=== PATIENT | female | born 1995 | race Hispanic/Latino ===

== ENCOUNTER 2019-10-12 15:17 | Outpatient (CLI) | payer OTHER, MEDICAID ==
[2019-10-12] MEDS ORDERED: LACTATED RINGERS 500 ML IV ONE (16:14)
[2019-10-12] MEDS ORDERED: LACTATED RINGERS 1,000 ML ONE (16:19)
[2019-10-12 16:31] VITALS: BP 109/71
[2019-10-12 17:05] LABS: Bacteria,Urine 2+ /HPF (Negative); Bilirubin,Urine NEG (Negative); Blood,Urine NEG (Negative); Color,Urine Straw (Yellow); Protein,Urine <15 mg/dL mg/dL (Negative); Urobilinogen,Urine < 2.0 mg/dL (<2.0)
[2019-10-12 17:21] LABS: Basophils % (Auto) 0.1 % (0.0-1.8); Eosinophils % (Auto) 0.3 % (0.0-4.3); Hematocrit 32.9 % (30.3-42.9); Hemoglobin 11.4 gm/dl (10.1-14.3); Lymphocytes # (Auto) 1.3 K/mm3 (1.2-5.4); Lymphocytes % (Auto) 12.2 % (13.4-35.0); Mean Corpuscular HGB Conc 35 % (30-34); Mean Corpuscular Volume 92 fl (79-97); Monocytes # (Auto) 0.7 K/mm3 (0.0-0.8); Monocytes % (Auto) 6.9 % (0.0-7.3); Platelet Count 221 K/mm3 (140-440); Red Cell Distribution Width 12.8 % (13.2-15.2)
[2019-10-12] MEDS ORDERED: TERBUTALINE 1 MG/1 ML INJ SUB-Q ONE (17:33)
[2019-10-12] MEDS: LACTATED RINGERS 1,000 ML IV SCH ×2 (17:54→17:55)
== END 2019-10-12 19:22 | disposition home or self-care (01) ==
LOC: TRG 15:17 → APU 15:17 → TRG 19:22
PROVIDERS: ATTEND Obstetrics & Gynecology
DX: O26.893 Other specified pregnancy related conditions, third trimester (principal); M54.9 Dorsalgia, unspecified; M25.551 Pain in right hip; R25.2 Cramp and spasm; O47.03 False labor before 37 completed weeks of gestation, third trimester; Z3A.33 33 weeks gestation of pregnancy
CPT/HCPCS: 36415; 59025; 81001; 85025; 86592; 86850; 86900; 86901; 96360; 96361; 96372; J3105; J7120

== ENCOUNTER 2019-11-25 18:16 | Outpatient (CLI) | payer OTHER, MEDICAID ==
[2019-11-25 18:43] VITALS: BP 116/71
[2019-11-25] MEDS ORDERED: ACETAMINOPHEN 500 MG TAB PO ONE (19:10)
== END 2019-11-25 19:41 | disposition home or self-care (01) ==
LOC: TRG 18:16 → APU 18:17 → TRG 19:41
PROVIDERS: ATTEND Obstetrics & Gynecology
DX: O62.9 Abnormality of forces of labor, unspecified (principal); Z3A.39 39 weeks gestation of pregnancy
CPT/HCPCS: Q0177

== ENCOUNTER 2019-11-26 08:30 | Inpatient (IN) | payer OTHER, MEDICAID ==
[2019-11-26] MEDS ORDERED: miSOPROStol 200 MCG TAB PR PRN (10:00)
[2019-11-26] MEDS ORDERED: LIDOCAINE (2%) 20 MG/1 ML VIAL 20 ML MDV INFILTRATI SCH (10:00)
[2019-11-26] MEDS ORDERED: TERBUTALINE 1 MG/1 ML INJ SUB-Q PRN (10:00)
[2019-11-26] MEDS ORDERED: ePHEDrine SULFATE 50 MG/1 ML INJ IV PRN ×2 (10:00→10:23)
[2019-11-26] MEDS ORDERED: fentaNYL 100 MCG/2 ML INJ IV PRN (10:00)
[2019-11-26] MEDS ORDERED: OXYTOCIN 20 UNIT/1000ML DRIP 20 UNITS/1,000 ML BAG IV SCH ×3 (10:00→20:45)
[2019-11-26] MEDS ORDERED: OXYTOCIN 10 UNIT/1 ML INJ IM PRN (10:00)
[2019-11-26] MEDS ORDERED: ACETAMINOPHEN 325 MG TAB PO PRN ×2 (10:00→20:45)
[2019-11-26] MEDS ORDERED: OXYTOCIN DRIP 30 UNITS/500 ML BAG IV SCH ×2 (10:00→12:00)
[2019-11-26] MEDS ORDERED: CARBOPROST TROMETHAMINE 250 MCG/1 ML INJ IM PRN (10:00)
[2019-11-26] MEDS ORDERED: ONDANSETRON 4 MG/2 ML INJ IV PRN (10:00)
[2019-11-26] MEDS: LACTATED RINGERS 1,000 ML IV SCH ×2 (10:00→14:58)
[2019-11-26] MEDS ORDERED: MINERAL OIL 30 ML ORAL LIQD PO PRN (10:00)
[2019-11-26] MEDS ORDERED: METHYLERGONOVINE MALEATE 0.2 MG/ML VIAL IM PRN (10:00)
[2019-11-26] MEDS ORDERED: NALOXONE 2 MG/2 ML INJ IV PRN (10:23)
[2019-11-26 10:39] LABS: Hemoglobin 11.5 gm/dl (10.1-14.3); Mean Corpuscular HGB Conc 34 % (30-34); Mean Corpuscular Volume 88 fl (79-97); Platelet Count 218 K/mm3 (140-440); Red Blood Count 3.85 M/mm3 (3.65-5.03); Red Cell Distribution Width 13.4 % (13.2-15.2)
[2019-11-26] MEDS ORDERED: fentaNYL-BUPIV 2 MCG/ML-0.125% 200 MCG/100 ML BAG EPIDURAL SCH (11:00)
--- NOTE | 2019-11-26 11:44 | History and Physical Report ---
History of Present Illness Date of examination: 11/26/19 (pt returned to Triage in active labor SVE 6cm) Chief complaint: Contraction all night History of present illness: EDC Confirmation: 11/27/2019 Gestational Age: 6 4/7 weeks Past History : 2 Term Births: 0 Premature Births: 0 Living Children: 0 Para: 0 Mult. Births: 0 Prev : 0 Prev. attempt? 0 Aborta: 1 Elect. Ab: 0 Spont. Ab: 1 Ectopics: 0 # 1 Delivery date: 03/12/2018 Weeks Gestation: 10 Delivery type: SAB Comments: Medication no D&C Risk Factors: Smoked Tobacco Use: Never smoker Smokeless Tobacco Use: Never Passive smoke exposure: no Drug use: no HIV high-risk behavior: no Caffeine use: 0 drinks per day Alcohol use: no Exercise: no Seatbelt use: 100 % Past Medical History: Reviewed history from 03/04/2018 and no changes required: SVT hypoglycemia Past Surgical History: Reviewed history from 03/04/2018 and no changes required: positive, Cadiac ablation (1990) Cholecystectomy (2008) Loop recorder (2013) Family History Summary: Reviewed history and no changes required: 04/07/2019 Other family member - Has Family History of Coronary Heart Disease - Entered On: 03/04/2018 Other family member - Has Family History of CVA or Stroke - Entered On: 03/04/2018 Other family member - Has Family History of Diabetes - Entered On: 03/04/2018 Other family member - Has No Family History of Breast Cancer - Entered On: 03/04/2018 Other family member - Has No Family History of Colon Cancer - Entered On: 03/04/2018 Other family member - Has No Family History of Ovarvian Cancer - Entered On: 03/04/2018 Social History: Reviewed history from 03/04/2018 and no changes required: Marital Status: Children: 0 Occupation: [employer] Past Medical History Anesthesia Complications: negative Anemia: negative Autoimmune Disorder: negative Bleeding Disorder: negative Blood Transfusions: negative Breast Disease: negative Diabetes: negative Heart Disease: positive Hypertension: negative Hepatitis/Liver Disease: negative Kidney Disease/UTI: negative Neurologic/Epilepsy/Migraines: negative Phlebitis/Varicosities: negative Psychiatric: negative Pulmonary Disease/Asthma: negative Thyroid Disease: negative Hospitalizations: positive Surgery (Non-filter helper): positive, Cadiac ablation (1990) Cholecystectomy (2008) Loop recorder (2013) Abnormal PAP: positive Uterine Anomaly: negative Social Hx: Marital Status: Children: 0 Occupation: Student [employer] early Infection History Hx of STD: none HIV Risk Eval: no Hepatitis B Risk Eval: low risk Personal hx. of genital herpes: no Genetic History Congenital Heart Defect: Mom: no Dad: unknown Milena Disease: Mom: no Dad: unknown Thalassemia Mom: no Dad: unknown Neural Tube Defect Mom: no Dad: unknown Down's Syndrome Mom: no Dad: unknown Karl-Sachs Mom: no Dad: unknown Sickle Cell Disease/Trait Mom: no Dad: unknown Hemophilia Mom: no Dad: unknown Muscular Dystrophy Mom: no Dad: unknown Cystic Fibrosis Mom: yes Dad: unknown [place] Chorea Mom: no Dad: unknown Mental Retardation Mom: no Dad: unknown Fragile X Mom: no Dad: unknown Other Genetic/Chromosomal Disorder Mom: no Dad: unknown Child w/other defect Mom: no Dad: unknown Enviromental Exposures Xray Exposure: no Medication, drug, or alcohol use since LMP: no Chemical/Other Exposure: no Exposure to Cat Liter: no Current Allergies: No known allergies Past History - Obstetrical History Expected Date of Delivery: 11/27/19 Actual Gestation: 39 Week(s) 6 Day(s) : 2 Para: 0 Hx # Term Pregnancies: 0 Number of Pregnancies: 0 Spontaneous Abortions: 1 Induced : 0 Number of Living Children: 0 Medications and Allergies Allergies Allergy/AdvReac Type Severity Reaction Status Date / Time No Known Allergies Allergy Verified 10/12/19 16:28 Active Meds: Active Medications Acetaminophen (Tylenol) 650 mg PO Q4H PRN PRN Reason: Pain, Mild (1-3) Carboprost Tromethamine (Hemabate) 250 mcg IM ONCE PRN PRN Reason: Uterine Bleeding Ephedrine Sulfate (Ephedrine Sulfate) 10 mg IV Q2M PRN PRN Reason: Hypotension Fentanyl (Sublimaze) 100 mcg IV Q2H PRN PRN Reason: Pain,Severe (7-10) LABOR PAIN Last Admin: 11/26/19 10:00 Dose: 100 mcg Documented by: Oxytocin/Sodium Chloride (Pitocin/Ns 30 Unit/500ml) 30 units in 500 mls @ 2 mls/hr IV TITR DARSHAN; Protocol Lactated Ringer's (Lactated Ringers) 1,000 mls @ 125 mls/hr IV DIRECT DARSHAN Last Admin: 11/26/19 10:00 Dose: 125 mls/hr Documented by: Oxytocin/Sodium Chloride (Pitocin/Ns 20 Unit/1000ml Drip) 20 units in 1,000 mls @ 125 mls/hr IV DIRECT DARSHAN Fentanyl/Bupivacaine/Sodium Chlor (Fentanyl-Bupiv 2 Mcg/Ml-0.125%) 200 mcg in 100 mls @ 12 mls/hr EPIDURAL TITR DARSHAN; Protocol Lidocaine (Xylocaine 2%) 20 ml INFILTRATI ONCE DARSHAN Stop: 11/27/19 09:59 Methylergonovine Maleate (Methergine) 0.2 mg IM ONCE PRN PRN Reason: Uterine Bleeding Mineral Oil (Mineral Oil) 30 ml PO QHS PRN PRN Reason: Constipation Misoprostol (Cytotec) 800 mcg WI ONCE PRN PRN Reason: Uterine Bleeding Naloxone HCl (Naloxone) 0.2 mg IV Q5M PRN PRN Reason: Respiratory sedation Ondansetron HCl (Zofran) 4 mg IV Q8H PRN PRN Reason: Nausea And Vomiting Oxytocin (Pitocin) 10 unit IM ONCE PRN PRN Reason: Uterine Bleeding Terbutaline Sulfate (Brethine) 0.25 mg SUB-Q ONCE PRN PRN Reason: Hyperstimulation/Hypertonicity Review of Systems All systems: negative - Vital Signs Vital signs: Vital Signs Temp Pulse Resp BP 98.6 F 90 14 123/80 11/26/19 09:35 11/26/19 09:35 11/26/19 09:35 11/26/19 09:35 Temp Pulse Resp BP Pulse Ox 98.6 F 66 14 113/62 100 11/26/19 09:35 11/26/19 11:38 11/26/19 09:35 11/26/19 11:37 11/26/19 11:38 - Physical Exam Breasts: Positive: deferred Cardiovascular: Regular rate Lungs: Positive: Normal air movement Abdomen: Positive: normal appearance, soft, normal bowel sounds Genitourinary (Female): Positive: normal external genitalia Vulva: both: normal Vagina: Positive: normal moisture Uterus: Positive: normal size Extremities: Positive: normal Deep Tendon Reflex Grade: Normal +2 - Obstetrical FHR: category 1 Uterine Contraction Monitor Mode: External Cervical Dilatation: 6 Cervical Effacement Percentage: 70 station: -1 Uterine Contraction Frequency (min): 2-3 Uterine Contraction Duration: 60-70 sec Uterine Contraction Pattern: Regular Uterine Tone Measurement Phase: Resting Uterine Contraction Intensity: Moderate Results Result Diagrams: 11/26/19 09:32 All other labs normal. GBS NEGATIVE HBsAg Screen Negative Negative *1 RPR Non Reactive Non Reactive *2 Rubella Antibodies, IgG 20.00 index Immune >0.99 *3 Non-immune <0.90 Equivocal 0.90 - 0.99 Immune >0.99 ABO Grouping A *4 Rh Factor Positive *5 Please note: Prior records for this patient's ABO / Rh type are not available for additional verification. Antibody Screen Negative Negative *6 WBC 8.7 x10E3/uL 3.4-10.8 *7 RBC 3.94 x10E6/uL 3.77-5.28 *8 Hemoglobin 12.1 g/dL 11.1-15.9 *9 Hematocrit 36.7 % 34.0-46.6 *10 MCV 93 fL 79-97 *11 MCH 30.7 pg 26.6-33.0 *12 MCHC 33.0 g/dL 31.5-35.7 *13 RDW 13.2 % 11.7-15.4 *14 Platelets 233 x10E3/uL 150-450 *15 Neutrophils 70 % Not Estab. *16 Lymphs 21 % Not Estab. *17 Monocytes 8 % Not Estab. *18 Eos 1 % Not Estab. *19 Basos 0 % Not Estab. *20 ! Immature Cells <No Reported Value> *21 Neutrophils (Absolute) 6.0 x10E3/uL 1.4-7.0 *22 Lymphs (Absolute) 1.8 x10E3/uL 0.7-3.1 *23 Monocytes(Absolute) 0.7 x10E3/uL 0.1-0.9 *24 Eos (Absolute) 0.1 x10E3/uL 0.0-0.4 *25 Baso (Absolute) 0.0 x10E3/uL 0.0-0.2 *26 ! Immature Granulocytes 0 % Not Estab. *27 ! Immature Grans (Abs) 0.0 x10E3/uL 0.0-0.1 *28 ! NRBC <No Reported Value> *29 Hematology Comments: <No Reported Value> *30 Tests: (2) HB Solu + Rflx Frac (144169) Hemoglobin (Hgb) Solubility Negative Negative *31 Tests: (3) HIV Ag/Ab with Reflex (070005) HIV Screen 4th Generation wRfx Non Reactive Non Reactive *32 Tests: (4) HCV Ab w/Rflx to Verification (347505) ! HCV Ab <0.1 s/co ratio 0.0-0.9 *33 Tests: (5) Comment: ([id number]) ! Comment: SPRCS *34 Non reactive HCV antibody screen is consistent with no HCV infection, unless recent infection is suspected or other evidence exists to indicate HCV infection. Assessment and Plan Patient is a 24 y/o 39.6 weeks gestation who present in active labor, GBS neg all orders in EMR anticipate delivery. JULITO Palacios
--- NOTE | 2019-11-26 11:52 | Anesthesia Consultation ---
Anesthesia Consult and Med Hx Date of service: 11/26/19 - Airway Anesthetic Teeth Evaluation: Good ROM Head & Neck: Adequate Mental/Hyoid Distance: Adequate Mallampati Class: Class II Intubation Access Assessment: Probably Good - Pulmonary Exam CTA: Yes - Cardiac Exam Cardiac Exam: RRR - Pre-Operative Health Status ASA Pre-Surgery Classification: ASA2 Proposed Anesthetic Plan: Epidural - Pulmonary Hx Asthma: No - Cardiovascular System Hx Hypertension: No Hx Cardia Arrhythmia: Yes (SVT s/p ablation) - Central Nervous System Hx Seizures: No Hx Psychiatric Problems: No - Endocrine Hx Renal Disease: No Hx Hypothyroidism: No Hx Hyperthyroidism: No - Hematic Hx Anemia: No Hx Sickle Cell Disease: No - Other Systems Hx Alcohol Use: No
--- NOTE | 2019-11-26 11:53 | Progress Note ---
Labor Epidural - Labor Epidural Start Time: 11:21 Stop Time: 11:29 Performed by:: MEGAN FLORES Procedure: Patient is requesting epidural for labor pain. H&P, and labs reviewed. Procedure explained, questions answered, consent obtained. Patient in sitting position with blood pressure cuff and pulse ox on and working. Timeout performed immediately before start of procedure. Sterile betadine prep/drape. 3 mL 1% lidocaine skin wheal at L[3]-L[4]. 18-gauge Touhy epidural needle advanced to [id number] with saline at 5 cm. Epidural dexmedetomidine [30] mcg administered. Epidural catheter advanced to 10 cm, negative aspiration for blood and csf, negative test dose 3 ml 1.5% lidocaine with epinephrine. Sterile steri-strips and tegaderm applied, followed by tape reinforcement. Patient tolerated procedure well. Day SRNA
--- NOTE | 2019-11-26 12:51 | Progress Note ---
Assessment and Plan Patient Resting comfortably after epidural, SVE 7/80/-1 soft midline vtx. Orders for Pitocin 4x4 every 30 mins anticipate delivery. FHT's 135-140's Cat 1 Subjective - Subjective Date of service: 11/26/19 (Patient complaints of pressure) Principal diagnosis: IUP at 39.6 weeks gestation with epidural Interval history: EDC Confirmation: 11/27/2019 Gestational Age: 6 4/7 weeks Past History : 2 Term Births: 0 Premature Births: 0 Living Children: 0 Para: 0 Mult. Births: 0 Prev : 0 Prev. attempt? 0 Aborta: 1 Elect. Ab: 0 Spont. Ab: 1 Ectopics: 0 # 1 Delivery date: 03/12/2018 Weeks Gestation: 10 Delivery type: SAB Comments: Medication no D&C Risk Factors: Smoked Tobacco Use: Never smoker Smokeless Tobacco Use: Never Passive smoke exposure: no Drug use: no HIV high-risk behavior: no Caffeine use: 0 drinks per day Alcohol use: no Exercise: no Seatbelt use: 100 % Past Medical History: Reviewed history from 03/04/2018 and no changes required: SVT hypoglycemia Past Surgical History: Reviewed history from 03/04/2018 and no changes required: positive, Cadiac ablation (1990) Cholecystectomy (2008) Loop recorder (2013) Family History Summary: Reviewed history and no changes required: 04/07/2019 Other family member - Has Family History of Coronary Heart Disease - Entered On: 03/04/2018 Other family member - Has Family History of CVA or Stroke - Entered On: 03/04/2018 Other family member - Has Family History of Diabetes - Entered On: 03/04/2018 Other family member - Has No Family History of Breast Cancer - Entered On: 03/04/2018 Other family member - Has No Family History of Colon Cancer - Entered On: 03/04/2018 Other family member - Has No Family History of Ovarvian Cancer - Entered On: 03/04/2018 Social History: Reviewed history from 03/04/2018 and no changes required: Marital Status: Children: 0 Occupation: [employer] early Past Medical History Anesthesia Complications: negative Anemia: negative Autoimmune Disorder: negative Bleeding Disorder: negative Blood Transfusions: negative Breast Disease: negative Diabetes: negative Heart Disease: positive Hypertension: negative Hepatitis/Liver Disease: negative Kidney Disease/UTI: negative Neurologic/Epilepsy/Migraines: negative Phlebitis/Varicosities: negative Psychiatric: negative Pulmonary Disease/Asthma: negative Thyroid Disease: negative Hospitalizations: positive Surgery (Non-radioisotope production operator): positive, Cadiac ablation (1990) Cholecystectomy (2008) Loop recorder (2013) Abnormal PAP: positive Uterine Anomaly: negative Social Hx: Marital Status: Children: 0 Occupation: [employer] early Infection History Hx of STD: none HIV Risk Eval: no Hepatitis B Risk Eval: low risk Personal hx. of genital herpes: no Genetic History Congenital Heart Defect: Mom: no Dad: unknown Milena Disease: Mom: no Dad: unknown Thalassemia Mom: no Dad: unknown Neural Tube Defect Mom: no Dad: unknown Down's Syndrome Mom: no Dad: unknown Karl-Sachs Mom: no Dad: unknown Sickle Cell Disease/Trait Mom: no Dad: unknown Hemophilia Mom: no Dad: unknown Muscular Dystrophy Mom: no Dad: unknown Cystic Fibrosis Mom: yes Dad: unknown [place] Chorea Mom: no Dad: unknown Mental Retardation Mom: no Dad: unknown Fragile X Mom: no Dad: unknown Other Genetic/Chromosomal Disorder Mom: no Dad: unknown Child w/other defect Mom: no Dad: unknown Enviromental Exposures Xray Exposure: no Medication, drug, or alcohol use since LMP: no Chemical/Other Exposure: no Exposure to Cat Liter: no Current Allergies: No known allergies Patient reports: movement normal, no new complaints, no loss of fluid, no vaginal bleeding, no contractions Objective - Vital Signs Vital Signs: Vital Signs - 12hr 11/26/19 11/26/19 11/26/19 09:35 10:05 10:51 Temperature 98.6 F Pulse Rate 90 72 71 Respiratory 14 Rate Blood Pressure 122/71 120/72 Blood Pressure 123/80 [Left] O2 Sat by Pulse Oximetry 11/26/19 11/26/19 11/26/19 11:05 11:19 11:21 Temperature Pulse Rate 72 88 77 Respiratory Rate Blood Pressure 131/64 107/55 108/62 Blood Pressure [Left] O2 Sat by Pulse 98 Oximetry 11/26/19 11/26/19 11/26/19 11:23 11:25 11:27 Temperature Pulse Rate 93 H 94 H 100 H Respiratory Rate Blood Pressure 87/57 128/65 129/71 Blood Pressure [Left] O2 Sat by Pulse 100 Oximetry 1011/26/19 11/26/19 11:28 11:29 11:31 Temperature Pulse Rate 86 91 H 90 Respiratory Rate Blood Pressure 125/69 129/76 Blood Pressure [Left] O2 Sat by Pulse 99 Oximetry 11/26/19 11/26/19 11/26/19 11:33 11:34 11:35 Temperature Pulse Rate 86 88 75 Respiratory Rate Blood Pressure 125/72 116/69 Blood Pressure [Left] O2 Sat by Pulse 100 Oximetry 11/26/19 11/26/19 11/26/19 11:37 11:38 11:39 Temperature Pulse Rate 74 66 71 Respiratory Rate Blood Pressure 113/62 105/60 Blood Pressure [Left] O2 Sat by Pulse 100 Oximetry 11/26/19 11/26/19 11/26/19 11:41 11:43 11:44 Temperature Pulse Rate 71 68 66 Respiratory Rate Blood Pressure 110/59 108/63 Blood Pressure [Left] O2 Sat by Pulse 99 Oximetry 11/26/19 11/26/19 11/26/19 11:45 11:47 11:49 Temperature Pulse Rate 77 73 67 Respiratory Rate Blood Pressure 103/58 98/59 100/58 Blood Pressure [Left] O2 Sat by Pulse 100 Oximetry 11/26/19 11/26/19 11/26/19 11:51 11:53 11:55 Temperature Pulse Rate 71 76 66 Respiratory Rate Blood Pressure 108/56 105/55 107/57 Blood Pressure [Left] O2 Sat by Pulse 100 Oximetry 11/26/19 11/26/19 11/26/19 11:57 11:59 12:00 Temperature Pulse Rate 70 76 69 Respiratory Rate Blood Pressure 105/60 112/64 Blood Pressure [Left] O2 Sat by Pulse 100 Oximetry 11/26/19 11/26/19 11/26/19 12:03 12:08 12:13 Temperature Pulse Rate 60 58 L 60 Respiratory Rate Blood Pressure Blood Pressure [Left] O2 Sat by Pulse 100 100 100 Oximetry 11/26/19 11/26/19 11/26/19 12:18 12:20 12:23 Temperature Pulse Rate 73 86 68 Respiratory Rate Blood Pressure 113/65 Blood Pressure [Left] O2 Sat by Pulse 100 100 Oximetry 11/26/19 11/26/19 11/26/19 12:28 12:33 12:35 Temperature Pulse Rate 77 74 73 Respiratory Rate Blood Pressure 114/67 Blood Pressure [Left] O2 Sat by Pulse 100 100 Oximetry 11/26/19 11/26/19 12:38 12:43 Temperature Pulse Rate 72 85 Respiratory Rate Blood Pressure Blood Pressure [Left] O2 Sat by Pulse 100 100 Oximetry - Exam Breasts: deferred Cardiovascular: Regular rate Lungs: Normal air movement Abdomen: Present: normal appearance, soft, normal bowel sounds. Absent: distention, tenderness Vulva: both: normal Uterus: Present: normal FHR: auscultation normal, category 1 Uterine Contraction Monitor Mode: Internal Cervical Dilatation: 8 (Meconium, SROM) Cervical Effacement Percentage: 100 (ISE IUPC Placed) station: 0 Uterine Contraction Frequency (min): 2-3 Uterine Contraction Duration: 60 sec Uterine Contraction Pattern: Regular Uterine Tone Measurement Phase: Resting Uterine Contraction Intensity: Moderate Extremities: normal Deep Tendon Reflex Grade: Normal +2 - Labs Labs: Laboratory Results - last 24 hr 11/26/19 11/26/19 11/26/19 09:32 09:50 Unknown WBC 9.2 RBC 3.85 Hgb 11.5 Hct 34.0 MCV 88 MCH 30 MCHC 34 RDW 13.4 Plt Count 218 Syphilis IgG Antibody Nonreactive Blood Type A POSITIVE Antibody Screen Negative
[2019-11-26] MEDS ORDERED: BUPIVACAINE/PF (0.25%) 2.5 MG/ML 10 ML VIAL INFILTRATI ONE ×2 (13:54→15:15)
--- NOTE | 2019-11-26 15:04 | Event Note ---
Date: 11/26/19 (Unable to push due to pain) Patient SVE /0 after trial of practice pushing. Patient is uncomfortable, will call anesthesia for a evaluation and top off. Explained to patient that there is a possibility that the epidural may need to be replaced.Patient and verbally agreed that it would be ok if its needs to be replaced. JULITO Dahl
--- NOTE | 2019-11-26 16:45 | Progress Note ---
Assessment and Plan Dispite prolonged pushing arrest of decent Dr. Colmenares notified, Called JULITO Palacios Subjective - Subjective Date of service: 11/26/19 (Pushing time approx 2hrs; Cat II strip) Principal diagnosis: IUP at 39.6 weeks gestation with epidural Interval history: EDC Confirmation: 11/27/2019 Gestational Age: 6 4/7 weeks Past History : 2 Term Births: 0 Premature Births: 0 Living Children: 0 Para: 0 Mult. Births: 0 Prev : 0 Prev. attempt? 0 Aborta: 1 Elect. Ab: 0 Spont. Ab: 1 Ectopics: 0 # 1 Delivery date: 03/12/2018 Weeks Gestation: 10 Delivery type: SAB Comments: Medication no D&C Risk Factors: Smoked Tobacco Use: Never smoker Smokeless Tobacco Use: Never Passive smoke exposure: no Drug use: no HIV high-risk behavior: no Caffeine use: 0 drinks per day Alcohol use: no Exercise: no Seatbelt use: 100 % Past Medical History: Reviewed history from 03/04/2018 and no changes required: SVT hypoglycemia Past Surgical History: Reviewed history from 03/04/2018 and no changes required: positive, Cadiac ablation (1990) Cholecystectomy (2008) Loop recorder (2013) Family History Summary: Reviewed history and no changes required: 04/07/2019 Other family member - Has Family History of Coronary Heart Disease - Entered On: 03/04/2018 Other family member - Has Family History of CVA or Stroke - Entered On: 03/04/2018 Other family member - Has Family History of Diabetes - Entered On: 03/04/2018 Other family member - Has No Family History of Breast Cancer - Entered On: 03/04/2018 Other family member - Has No Family History of Colon Cancer - Entered On: 03/04/2018 Other family member - Has No Family History of Ovarvian Cancer - Entered On: 03/04/2018 Social History: Reviewed history from 03/04/2018 and no changes required: Marital Status: Children: 0 Occupation: [employer] early Past Medical History Anesthesia Complications: negative Anemia: negative Autoimmune Disorder: negative Bleeding Disorder: negative Blood Transfusions: negative Breast Disease: negative Diabetes: negative Heart Disease: positive Hypertension: negative Hepatitis/Liver Disease: negative Kidney Disease/UTI: negative Neurologic/Epilepsy/Migraines: negative Phlebitis/Varicosities: negative Psychiatric: negative Pulmonary Disease/Asthma: negative Thyroid Disease: negative Hospitalizations: positive Surgery (Non-sales enablement specialist): positive, Cadiac ablation (1990) Cholecystectomy (2008) Loop recorder (2013) Abnormal PAP: positive Uterine Anomaly: negative Social Hx: Marital Status: Children: 0 Occupation: [employer] early Infection History Hx of STD: none HIV Risk Eval: no Hepatitis B Risk Eval: low risk Personal hx. of genital herpes: no Genetic History Congenital Heart Defect: Mom: no Dad: unknown Milena Disease: Mom: no Dad: unknown Thalassemia Mom: no Dad: unknown Neural Tube Defect Mom: no Dad: unknown Down's Syndrome Mom: no Dad: unknown Karl-Sachs Mom: no Dad: unknown Sickle Cell Disease/Trait Mom: no Dad: unknown Hemophilia Mom: no Dad: unknown Muscular Dystrophy Mom: no Dad: unknown Cystic Fibrosis Mom: yes Dad: unknown [place] Chorea Mom: no Dad: unknown Mental Retardation Mom: no Dad: unknown Fragile X Mom: no Dad: unknown Other Genetic/Chromosomal Disorder Mom: no Dad: unknown Child w/other defect Mom: no Dad: unknown Enviromental Exposures Xray Exposure: no Medication, drug, or alcohol use since LMP: no Chemical/Other Exposure: no Exposure to Cat Liter: no Current Allergies: No known allergies Patient reports: movement normal, no new complaints, no loss of fluid, no vaginal bleeding, no contractions Objective - Vital Signs Vital Signs: Vital Signs - 12hr 11/26/19 11/26/19 11/26/19 09:35 10:05 10:51 Temperature 98.6 F Pulse Rate 90 72 71 Respiratory 14 Rate Blood Pressure 122/71 120/72 Blood Pressure 123/80 [Left] O2 Sat by Pulse Oximetry 11/26/19 11/26/19 11/26/19 11:05 11:19 11:21 Temperature Pulse Rate 72 88 77 Respiratory Rate Blood Pressure 131/64 107/55 108/62 Blood Pressure [Left] O2 Sat by Pulse 98 Oximetry 11/26/19 11/26/19 11/26/19 11:23 11:25 11:27 Temperature Pulse Rate 93 H 94 H 100 H Respiratory Rate Blood Pressure 87/57 128/65 129/71 Blood Pressure [Left] O2 Sat by Pulse 100 Oximetry 11/26/19 11/26/19 11/26/19 11:28 11:29 11:31 Temperature Pulse Rate 86 91 H 90 Respiratory Rate Blood Pressure 125/69 129/76 Blood Pressure [Left] O2 Sat by Pulse 99 Oximetry 11/26/19 11/26/19 11/26/19 11:33 11:34 11:35 Temperature Pulse Rate 86 88 75 Respiratory Rate Blood Pressure 125/72 116/69 Blood Pressure [Left] O2 Sat by Pulse 100 Oximetry 11/26/19 11/26/19 11/26/19 11:37 11:38 11:39 Temperature Pulse Rate 74 66 71 Respiratory Rate Blood Pressure 113/62 105/60 Blood Pressure [Left] O2 Sat by Pulse 100 Oximetry 11/26/19 11/26/19 11/26/19 11:41 11:43 11:44 Temperature Pulse Rate 71 68 66 Respiratory Rate Blood Pressure 110/59 108/63 Blood Pressure [Left] O2 Sat by Pulse 99 Oximetry 11/26/19 11/26/19 11/26/19 11:45 11:47 11:49 Temperature Pulse Rate 77 73 67 Respiratory Rate Blood Pressure 103/58 98/59 100/58 Blood Pressure [Left] O2 Sat by Pulse 100 Oximetry 11/26/19 11/26/19 11/26/19 11:51 11:53 11:55 Temperature Pulse Rate 71 76 66 Respiratory Rate Blood Pressure 108/56 105/55 107/57 Blood Pressure [Left] O2 Sat by Pulse 100 Oximetry 11/26/19 11/26/19 11/26/19 11:57 11:59 12:00 Temperature Pulse Rate 70 76 69 Respiratory Rate Blood Pressure 105/60 112/64 Blood Pressure [Left] O2 Sat by Pulse 100 Oximetry 11/26/19 11/26/19 11/26/19 12:03 12:08 12:13 Temperature Pulse Rate 60 58 L 60 Respiratory Rate Blood Pressure Blood Pressure [Left] O2 Sat by Pulse 100 100 100 Oximetry 11/26/19 11/26/19 11/26/19 12:18 12:20 12:23 Temperature Pulse Rate 73 86 68 Respiratory Rate Blood Pressure 113/65 Blood Pressure [Left] O2 Sat by Pulse 100 100 Oximetry 11/26/19 11/26/19 11/26/19 12:28 12:33 12:35 Temperature Pulse Rate 77 74 73 Respiratory Rate Blood Pressure 114/67 Blood Pressure [Left] O2 Sat by Pulse 100 100 Oximetry 11/26/19 11/26/19 11/26/19 12:38 12:43 12:48 Temperature Pulse Rate 72 85 76 Respiratory Rate Blood Pressure Blood Pressure [Left] O2 Sat by Pulse 100 100 100 Oximetry 11/26/19 11/26/19 11/26/19 12:50 12:53 12:58 Temperature Pulse Rate 75 72 91 H Respiratory Rate Blood Pressure 111/66 Blood Pressure [Left] O2 Sat by Pulse 100 100 Oximetry 11/26/19 11/26/19 11/26/19 13:03 13:05 13:08 Temperature Pulse Rate 75 73 77 Respiratory Rate Blood Pressure 111/67 Blood Pressure [Left] O2 Sat by Pulse 100 100 Oximetry 11/26/19 11/26/19 11/26/19 13:13 13:18 13:33 Temperature Pulse Rate 78 87 88 Respiratory Rate Blood Pressure Blood Pressure [Left] O2 Sat by Pulse 100 99 100 Oximetry 11/26/19 11/26/19 11/26/19 13:38 13:43 13:48 Temperature Pulse Rate 86 87 89 Respiratory Rate Blood Pressure Blood Pressure [Left] O2 Sat by Pulse 100 100 99 Oximetry 11/26/19 11/26/19 11/26/19 13:53 13:56 13:58 Temperature Pulse Rate 94 H 72 61 Respiratory Rate Blood Pressure 128/78 Blood Pressure [Left] O2 Sat by Pulse 100 100 Oximetry 11/26/19 11/26/19 11/26/19 14:03 14:08 14:11 Temperature Pulse Rate 63 63 71 Respiratory Rate Blood Pressure 140/82 Blood Pressure [Left] O2 Sat by Pulse 99 98 Oximetry 11/26/19 11/26/19 11/26/19 14:13 14:18 14:23 Temperature Pulse Rate 73 69 71 Respiratory Rate Blood Pressure Blood Pressure [Left] O2 Sat by Pulse 98 98 98 Oximetry 11/26/19 11/26/19 11/26/19 14:28 14:33 14:38 Temperature Pulse Rate 72 77 67 Respiratory Rate Blood Pressure Blood Pressure [Left] O2 Sat by Pulse 98 97 99 Oximetry 11/26/19 11/26/19 11/26/19 14:41 14:43 14:48 Temperature Pulse Rate 39 L 82 70 Respiratory Rate Blood Pressure 122/86 Blood Pressure [Left] O2 Sat by Pulse 98 97 Oximetry 11/26/19 11/26/19 11/26/19 14:53 14:56 14:58 Temperature Pulse Rate 81 80 72 Respiratory Rate Blood Pressure 106/65 Blood Pressure [Left] O2 Sat by Pulse 99 98 Oximetry 11/26/19 11/26/19 11/26/19 15:03 15:08 15:13 Temperature Pulse Rate 79 69 84 Respiratory Rate Blood Pressure Blood Pressure [Left] O2 Sat by Pulse 98 98 99 Oximetry 11/26/19 11/26/19 11/26/19 15:18 15:23 15:27 Temperature Pulse Rate 83 84 72 Respiratory Rate Blood Pressure 106/59 Blood Pressure [Left] O2 Sat by Pulse 98 98 Oximetry 11/26/19 11/26/19 11/26/19 15:28 15:33 15:38 Temperature Pulse Rate 68 71 82 Respiratory Rate Blood Pressure Blood Pressure [Left] O2 Sat by Pulse 97 98 99 Oximetry 11/26/19 11/26/19 11/26/19 15:43 15:48 15:53 Temperature Pulse Rate 84 74 77 Respiratory Rate Blood Pressure Blood Pressure [Left] O2 Sat by Pulse 98 98 99 Oximetry 11/26/19 11/26/19 11/26/19 15:58 16:03 16:08 Temperature Pulse Rate 106 H 67 93 H Respiratory Rate Blood Pressure Blood Pressure [Left] O2 Sat by Pulse 98 81 L 98 Oximetry 11/26/19 11/26/19 11/26/19 16:10 16:12 16:13 Temperature Pulse Rate 99 H 125 H 131 H Respiratory Rate Blood Pressure 161/56 Blood Pressure [Left] O2 Sat by Pulse 86 92 Oximetry 11/26/19 11/26/19 11/26/19 16:16 16:18 16:23 Temperature Pulse Rate 74 103 H 61 Respiratory Rate Blood Pressure Blood Pressure [Left] O2 Sat by Pulse 90 100 98 Oximetry 11/26/19 11/26/19 11/26/19 16:28 16:34 16:39 Temperature Pulse Rate 76 88 76 Respiratory Rate Blood Pressure Blood Pressure [Left] O2 Sat by Pulse 98 100 99 Oximetry - Exam Breasts: deferred Cardiovascular: Regular rate Abdomen: Present: normal appearance, soft. Absent: distention, tenderness Uterus: Present: normal FHR: auscultation normal, category 2 (Consistant low base line to the 60's OT presentation multiple pushing positions) Uterine Contraction Monitor Mode: External Cervical Dilatation: 10 Cervical Effacement Percentage: 100 station: 0 Uterine Contraction Pattern: Regular Uterine Tone Measurement Phase: Resting Uterine Contraction Intensity: Moderate Extremities: normal Deep Tendon Reflex Grade: Normal +2 - Labs Labs: Laboratory Results - last 24 hr 11/26/19 11/26/19 11/26/19 09:32 09:50 Unknown WBC 9.2 RBC 3.85 Hgb 11.5 Hct 34.0 MCV 88 MCH 30 MCHC 34 RDW 13.4 Plt Count 218 Syphilis IgG Antibody Nonreactive Blood Type A POSITIVE Antibody Screen Negative
[2019-11-26] MEDS ORDERED: METOCLOPRAMIDE 10 MG/2 ML INJ IV ONE (16:47)
[2019-11-26] MEDS ORDERED: BICITRA ORAL LIQD 30ML PO ONE (16:47)
[2019-11-26] MEDS ORDERED: FAMOTIDINE 20 MG/2 ML INJ IV ONE (16:47)
[2019-11-26] MEDS ORDERED: LIDOCAINE 2%/EPINEPHRINE 1:200,000 VIAL (20 ML) INFILTRATI ONE (16:58)
[2019-11-26] MEDS ORDERED: ONDANSETRON 4 MG/2 ML INJ ONE (16:58)
--- NOTE | 2019-11-26 16:59 | Event Note ---
Date: 11/26/19 intolerance with pushing, no descent. options reviewed. Risk associated with delivery were discussed, including but not limited to, bleeding that may require blood transfusion, infection that may be life threatening, injury to adjacent organs specifically bowel or bladder that may require further surgeries, or major vascular injury. She was also informed that when she has had a delivery she may require repeat deliveries for all subsequent pregnancies. Questions were encouraged and answered, consents were r eviewed and signed. Patient voiced understanding and desires to proceed with delivery.
[2019-11-26] MEDS ORDERED: ceFAZolin/Water 2 GM/20 ML 2 GM/20 ML SYRINGE IV NR (17:00)
[2019-11-26] MEDS ORDERED: PHENYLEPHRINE/NS 1,000 MCG/10 ML SYRINGE (OR USE) IV ONE (17:00)
[2019-11-26] MEDS ORDERED: KETOROLAC 30 MG/1 ML INJ ONE (17:00)
[2019-11-26] MEDS ORDERED: LACTATED RINGERS 1,000 ML IV SCH (17:00)
[2019-11-26] MEDS ORDERED: OXYTOCIN 10 UNIT/1 ML INJ ONE (17:00)
[2019-11-26] MEDS ORDERED: ceFAZolin/STERILE WATER 2 GM/20 ML SYRINGE IV ONE (17:15)
[2019-11-26] MEDS ORDERED: BUPIVACAINE/PF (0.5%) 5 MG/1 ML 30 ML VIAL INFILTRATI ONE (18:20)
--- NOTE | 2019-11-26 18:33 | Operative Report ---
Operative Report Operative Report: Date of operation: 11/26/2019 Pre-operative diagnosis: 1. 39 weeks gestational age 2. Nonreassuring heart rate 3. Failure to dilate 4. BMI 25 kg/m Post-operative diagnosis: 1. 39 weeks gestational age 2. Nonreassuring heart rate 3. Failure to dilate 4. BMI 25 kg/m Procedure name(s): Primary low transverse delivery Surgeon: Corazon Colmenares MD Telephone Quotation Clerk: [] Anesthesia: Epidural EBL: 800 mL Urine output: 200 mL of clear urine out at the end of the procedure Fluids: 1400 mL Findings: Liveborn male infant weight 9 Lbs. 4 oz. Apgars of 8 and 9 at one and 5 minutes Indications: [] Procedure: Patient was taking to the operating room. Epidural anesthesia was bolused. Patient was then prepped and draped in the usual sterile fashion Timeout was performed. Once an appropriate level of anesthesia was noted, a Pfannenstiel incision was made and extended the fascia which was incised and extended lateral direction. The overlying fascia was sharply dissected away from the underlying rectus muscles in the superior inferior direction. The midline was entered bluntly. Bladder blade was placed. Vesicouterine fold was incised with blunt dissection bladder flap was created. A transverse incision was made in the lower uterine segment and extended superolateral direction with finger fractionation. Scant clear fluid was noted. Infant was delivered from the cephalic R OT position, with delivery of cord with the infants head. Infant had spontaneous cry and excellent tone. Mouth and nose bulb suctioned. Cord was doubly clamped and cut infant was given to the resuscitation team present. Placenta was delivered. The uterus was exteriorized and cleaned of any further placental tissue and products of conception. Uterine incision was approximated using 0 Vicryl in a running interlocking stitch followed by further suture of 0 Vicryl in imbricating fashion. When hemostasis was noted the uterus was allowed back in the pelvic cavity. Pelvis was irrigated with warm normal saline. There was a non-expanding hematoma noted on the left aspect of the uterine incision. Once hemostasis was noted the rectus muscles were approximated using 0 Vicryl interrupted simple stitches 3. Once hemostasis was noted the fascia was approximated using 0 Vicryl simple running stitch. The incision was irrigated with warm saline, once hemostasis as noted, the subcuticular adipose tissue was reapproximated using 3-0 Vicryl in a simple running fashion. Skin was approximated using 4-0 Vicryl on a Santi needle in a subcuticular manner. Counts were correct x3. Patient tolerated the procedure well, she was taken to recovery room in stable condition.
--- NOTE | 2019-11-26 18:43 | Post Anesthesia Evaluation ---
- Post Anesthesia Evaluation Patient Participated: Yes Airway Patent: Yes Stable Respiratory Function: Yes Nausea/Vomiting: No Temp > 96.8F: Yes Pain Manageable: Yes Adequeate Hydration: Yes Anesthesia Complications: No Block Receding Appropriately: Yes
--- NOTE | 2019-11-26 18:44 | Progress Note ---
Regional Anesthesia Block - Regional Anesthesia Block Start Time: 18:36 Stop Time: 18:40 Performed By:: MEGAN FLORES Procedure: U/S guided bilateral tap block performed for post-operative pain requested by Dr. Colmenares. H&P & labs reviewed. Procedure explained, questions answered, consent obtained. Patient in the supine position with ekg, blood pressure cuff and pulse ox on and working in PACU. Timeout performed immediately before start of procedure. Probe placed in the mid-axillary line and the external oblique, internal oblique, and transverse abdominus muscles identified. Skin was cleansed with 0.5% Chlorahexadine and allowed to dry. A 4" 20 G Marcos echogenic needle was advanced in plane until the tip was in the fascial plane between the internal oblique and the transverse abdominus. After negative aspiration 35 ml/side of [30 ml 0.5% Bupivacaine], [50 mcg dexmedetomidine], [8 mg dexamethasone], and [40 ml sterile saline] was injected in 5 ml increments with negative aspiration in between. Patient tolerated procedure well. Laura SCHWAB
[2019-11-26] MEDS ORDERED: MORPHINE 2 MG/1 ML INJ IV PRN (20:45)
[2019-11-26] MEDS ORDERED: NALOXONE 0.4 MG/1 ML INJ IV PRN (20:45)
[2019-11-26] MEDS ORDERED: WITCH HAZEL/ GLYCERIN PAD TP PRN (20:45)
[2019-11-26] MEDS ORDERED: oxyCODONE /ACETAMINOPHEN 5-325MG TAB PO PRN (20:45)
[2019-11-26] MEDS ORDERED: MAGNESIUM HYDROXIDE (MOM) ORAL LIQD UDC PO PRN (20:45)
[2019-11-26] MEDS ORDERED: HYDROcodone/ACETAMINOPHEN 5-325 MG TAB PO PRN (20:45)
[2019-11-26] MEDS ORDERED: D5W/LACTATED RINGERS 1,000 ML IV SCH (20:45)
[2019-11-26] MEDS ORDERED: MORPHINE 4 MG/1 ML INJ IV PRN (20:45)
[2019-11-26] MEDS ORDERED: SIMETHICONE 80 MG CHEW TAB PO PRN (20:45)
[2019-11-26] MEDS ORDERED: SENNOSIDES 8.6 MG TAB PO PRN (20:45)
[2019-11-26] MEDS ORDERED: LANOLIN/ZINC/DIMETHICONE (LANSINOH) 7 GM TP PRN (20:45)
[2019-11-26] MEDS: ceFAZolin/NS 1 GM/50 ML 1 GM/50 ML BAG IV SCH (23:10)
[2019-11-27] MEDS: KETOROLAC 30 MG/1 ML INJ IV SCH ×4 (01:00→21:49)
[2019-11-27 07:51] LABS: Hematocrit 33.4 % (30.3-42.9); Hemoglobin 11.1 gm/dl (10.1-14.3)
--- NOTE | 2019-11-27 09:04 | Progress Note ---
Assessment and Plan A: 24 y.o. s/p primary , post op 13 hours, stable. P: Continue with care. Ambulation encouraged. Advance diet as tolerated. Anticipate discharge home on 11/27 in the afternoon. Subjective - Subjective Date of service: 11/27/19 (Pt feeling okay at this time. ) Principal diagnosis: S/p Primary , POD 12 hours Patient reports: voiding normally, pain well controlled, ambulating normally [place]: doing well Objective - Vital Signs Latest vital signs: Vital Signs Temp Pulse Resp BP BP Pulse Ox 11/27/19 08:09 20 11/27/19 05:36 97.8 F 68 18 111/72 97 11/27/19 00:38 97.9 F 55 L 18 124/70 96 11/26/19 20:21 97.5 F L 63 20 106/60 97 11/26/19 19:30 64 17 127/78 98 11/26/19 19:15 67 14 121/74 98 11/26/19 19:00 74 15 118/73 97 11/26/19 18:45 77 18 111/75 98 11/26/19 18:40 71 13 127/81 98 11/26/19 18:35 80 18 124/71 100 11/26/19 18:30 97.6 F 89 16 102/43 100 11/26/19 17:11 83 104/55 11/26/19 17:09 90 100 11/26/19 17:04 86 100 11/26/19 16:59 80 100 11/26/19 16:57 82 108/59 11/26/19 16:54 173 H 99 11/26/19 16:49 79 98 11/26/19 16:44 76 99 11/26/19 16:42 81 142/56 11/26/19 16:39 76 99 11/26/19 16:34 88 100 11/26/19 16:28 76 98 11/26/19 16:23 61 98 11/26/19 16:18 103 H 100 11/26/19 16:16 74 90 11/26/19 16:13 131 H 92 11/26/19 16:12 125 H 161/56 11/26/19 16:10 99 H 86 11/26/19 16:08 93 H 98 11/26/19 16:03 67 81 L 11/26/19 15:58 106 H 98 11/26/19 15:53 77 99 11/26/19 15:48 74 98 11/26/19 15:43 84 98 11/26/19 15:38 82 99 11/26/19 15:33 71 98 11/26/19 15:28 68 97 11/26/19 15:27 72 106/59 11/26/19 15:23 84 98 11/26/19 15:18 83 98 11/26/19 15:13 84 99 11/26/19 15:08 69 98 11/26/19 15:03 79 98 11/26/19 14:58 72 98 11/26/19 14:56 80 106/65 11/26/19 14:53 81 99 11/26/19 14:48 70 97 11/26/19 14:43 82 98 11/26/19 14:41 39 L 122/86 11/26/19 14:38 67 99 11/26/19 14:33 77 97 11/26/19 14:28 72 98 11/26/19 14:23 71 98 11/26/19 14:18 69 98 11/26/19 14:13 73 98 11/26/19 14:11 71 140/82 11/26/19 14:08 63 98 11/26/19 14:03 63 99 11/26/19 13:58 61 100 11/26/19 13:56 72 128/78 11/26/19 13:53 94 H 100 11/26/19 13:48 89 99 11/26/19 13:43 87 100 11/26/19 13:38 86 100 11/26/19 13:33 88 100 11/26/19 13:18 87 99 11/26/19 13:13 78 100 11/26/19 13:08 77 100 11/26/19 13:05 73 111/67 11/26/19 13:03 75 100 11/26/19 12:58 91 H 100 11/26/19 12:53 72 100 11/26/19 12:50 75 111/66 11/26/19 12:48 76 100 11/26/19 12:43 85 100 11/26/19 12:38 72 100 11/26/19 12:35 73 114/67 11/26/19 12:33 74 100 11/26/19 12:28 77 100 11/26/19 12:23 68 100 11/26/19 12:20 86 113/65 11/26/19 12:18 73 100 11/26/19 12:13 60 100 11/26/19 12:08 58 L 100 11/26/19 12:03 60 100 11/26/19 12:00 69 112/64 11/26/19 11:59 76 100 11/26/19 11:57 70 105/60 11/26/19 11:55 66 107/57 11/26/19 11:53 76 105/55 100 11/26/19 11:51 71 108/56 11/26/19 11:49 67 100/58 100 11/26/19 11:47 73 98/59 11/26/19 11:45 77 103/58 11/26/19 11:44 66 99 11/26/19 11:43 68 108/63 11/26/19 11:41 71 110/59 11/26/19 11:39 71 105/60 11/26/19 11:38 66 100 11/26/19 11:37 74 113/62 11/26/19 11:35 75 116/69 11/26/19 11:34 88 100 11/26/19 11:33 86 125/72 11/26/19 11:31 90 129/76 11/26/19 11:29 91 H 125/69 11/26/19 11:28 86 99 11/26/19 11:27 100 H 129/71 11/26/19 11:25 94 H 128/65 11/26/19 11:23 93 H 87/57 100 11/26/19 11:21 77 108/62 11/26/19 11:19 88 107/55 98 11/26/19 11:05 72 131/64 11/26/19 10:51 71 120/72 11/26/19 10:05 72 122/71 11/26/19 09:35 98.6 F 90 14 123/80 Intake and Output 11/26/19 11/27/19 11/27/19 22:59 06:59 14:59 Intake Total 2400 600 Output Total 775 800 Balance 1625 -200 Intake: IV 2400 Oral 600 Output: Urine 775 800 Indwelling Catheter 800 Uretheral (Garcia) 350 Other: Total, Intake Amount 360 Total, Output Amount 800 # Voids Indwelling Catheter 300 - Exam Breasts: Present: deferred Cardiovascular: Present: Regular rate Lungs: Present: Normal air movement Abdomen: Present: normal appearance, soft Vulva: both: normal Uterus: Present: normal, firm Extremities: Present: normal Deep Tendon Reflex Grade: Normal +2 Incision: Present: normal, dry, intact, dressed
[2019-11-27] MEDS: ceFAZolin/NS 1 GM/50 ML 1 GM/50 ML BAG IV SCH (17:20)
--- NOTE | 2019-11-27 18:21 | Event Note ---
Date: 11/27/19 (Pt declines Hayward for pain) Received call from RN stating that pt did not want to Hayward or Percocet for pain because they make her sick, and that she just wanted Extra Strength Tylenol and Motrin for pain. Will order Extra Strength Tylenol for patient. RN aware states that she is aware to watch to make sure pt does not go over 4000mg in 24 hr p eriod.
[2019-11-27] MEDS ORDERED: DIPHtheria,PERTUSSIS(ACELL),TETANUS VACCINE/PF 0.5 ML VIAL IM ONE (18:23)
[2019-11-27] MEDS ORDERED: ACETAMINOPHEN 325 MG TAB PO PRN (18:26)
[2019-11-28] MEDS: IBUPROFEN 800 MG TAB PO PRN ×2 (03:09→09:03)
--- NOTE | 2019-11-28 08:42 | Discharge Summary ---
Providers - Providers Date of Admission: 11/26/19 17:30 Date of discharge: 11/28/19 (pt desires d/c) Attending physician: LYNNETTE CASTILLO Primary care physician: FARHAD UMANZOR Hospitalization Reason for admission: active labor Delivery: Procedure: primary low transverse (arrest of descent) Episiotomy: none Laceration: none Incision: normal, dry, intact Other procedures: none complications: none Discharge diagnosis: IUP at term delivered baby: male (mom will call for circ in OB office) Hospital course: uncomplicated section Pt OOB doing AM care No c/o voiced Desires d/c VSS FF below umb Lochia small Incision D&I H&H stable No s/sx of anemia Doing well s/p section P: d/c today with instructions RTO 1 week postop care Condition at discharge: Good Disposition: DC- TO HOME OR SELFCARE - Discharge Diagnoses (1) delivery delivered Status: Acute Comment: RTO 1 week postop Plan - Discharge Medications Prescriptions: Docusate Sodium [Colace] 100 mg PO BID PRN #30 capsule PRN Reason: Constipation Lidocain2.5%/Prilocai2.5% [Emla] 5 gm TP ONCE #1 tube Ferrous Sulfate [Feosol 325 MG tab] 325 mg PO DAILY #90 tablet Ibuprofen [Motrin 800 MG tab] 800 mg PO TID PRN #30 tablet PRN Reason: Pain oxyCODONE /ACETAMINOPHEN [Percocet 5/325 mg] 1 - 2 tab PO Q4HR PRN #14 tablet PRN Reason: Pain - Provider Discharge Summary Activity: routine, no sex for 6 weeks, no heavy lifting 4 weeks, no strenuous exercise Diet: routine Instructions: routine Additional instructions: [] Smoking cessation referral if applicable(refer to patient education folder for contact #) [] Refer to [facility] Booklet Call your doctor immediately for: * Fever > 100.5 * Heavy vaginal bleeding ( >1 pad per hour) * Severe persistent headache * Shortness of breath * Reddened, hot, painful area to leg or breast * Drainage or odor from incision. * Keep incision clean and dry at all times and follow doctor's instructions regarding bathing/showering - Follow up plan Follow up: FARHAD UMANZOR MD [Primary Care Provider] - 7 Days (Congratulations! Please call [phone] to schedule your postoperative visit and your son's circumcision in one week. Bring the EMLA cream with you to his visit. Do NOT use at home. Take medication as prescribed Call with any concerns.)
[2019-11-28 11:05] VITALS: BP 113/68
== END 2019-11-28 11:15 | disposition home or self-care (01) | DRG 788 ==
LOC: TRG 08:30 → LD 08:50 → APU 09:22 → LD 10:21 → TRG 17:59 → OB 20:45
PROVIDERS: ADMIT Obstetrics & Gynecology; ATTEND Obstetrics & Gynecology
PROC: 10D00Z1 Extraction of Products of Conception, Low, Open Approach (ICD-10-PCS; principal; 2019-11-26)
DX: O76 Abnormality in fetal heart rate and rhythm complicating labor and delivery (principal); O62.0 Primary inadequate contractions; Z37.0 Single live birth; Z3A.39 39 weeks gestation of pregnancy; Z20.828 Contact with and (suspected) exposure to other viral communicable diseases
CPT/HCPCS: 36415; 85014; 85018; 85027; 86592; 86850; 86900; 86901; G0378; J0690; J1885; J2370; J2405; J2590; J2765; J3010; J7120; J7121; U0003-CS